=== PATIENT | male | born 1975 | race Caucasian/White ===

== ENCOUNTER 2020-02-09 21:02 | Emergency (ER) | payer BC, SELFPAY ==
--- NOTE | ~2020-02-09 | XR_ITS ---
EXAMINATION: XR abdomen obstructive series DATE: 02/09/2020 21:31 INDICATION: Rectal pain, possible constipation TECHNIQUE: Upright and supine views of the abdomen were obtained. COMPARISON: None. FINDINGS: There are no dilated loops of bowel. No free intraperitoneal gas is identified. The bowel g as pattern is normal. There is a moderate volume of stool in the ascending and proximal transverse co baltazar. Phleboliths are noted in the pelvis. IMPRESSION: 1. Nonobstructive bowel gas pattern. 2. Moderate volume of right-sided colonic stool. Reviewed, dictated and finalized at location A.
[2020-02-09 21:04] VITALS: BP 187/94; PULSE 103; RESP 19; TEMP 36.6; O2SAT 98
--- NOTE | 2020-02-09 21:53 | ED.GENADULT ---
HPI - General Adult General Chief complaint: Unspecified Stated complaint: constipation? Time Seen by Provider: 02/09/20 21:16 Source: patient Mode of arrival: ambulatory Limitations: no limitations History of Present Illness HPI narrative: 44 years old white male presents with anal pain with any bowel movement in the last 24 hours. History of hemorrhoids. Patient denies any fever, chills, nausea, vomiting. Related Data Home Medications Medication Instructions Recorded Confirmed epinephrine 0.3 mg/0.3 mL See Rx Instructions .ROUTE .COMPLEX 06/08/19 injection, auto-injector Allergies Allergy/AdvReac Type Severity Reaction Status Date / Time No Known Allergies Allergy Unknown Unverified 01/24/06 06:10 Review of Systems Review of Systems: Narrative: CONSTITUTIONAL: Denies fever, chills, or sweats. EYES: Denies visual changes, redness, or discharge. ENT: Denies rhinorrhea, congestion, sore throat, or otalgia. CARDIOVASCULAR: Denies chest pain, palpitations, or edema. RESPIRATORY: Denies cough or dyspnea. GASTROINTESTINAL: Denies abdominal pain, nausea, vomiting, or diarrhea. GENITOURINARY: Denies dysuria or hematuria. SKIN: Denies rash or itching. MUSCULOSKELETAL: Denies back pain, joint pain, or myalgia. NEUROLOGIC: Denies headache, numbness, or weakness. PSYCHIATRIC: Denies anxiety or depression. [facility] Social History Social History Smoking status: Heavy tobacco smoker Alcohol intake: current Gender identity (if verbalized by the patient): Male Exam Narrative: Exam Narrative: General appearance: Well-developed, well-nourished Skin: Normal color Head: Normocephalic, nontraumatic Eyes: Clear conjunctiva ENT: Oropharynx normal, ears normal, nose normal Neck: Supple, nontender Chest and respiratory: Airway patent, no respiratory distress, no accessory muscle use Heart: Regular rate/rhythm Abdomen: Soft, nontender, no organomegaly, quiet bowel sounds, annual exam showed large congested hemorrhoids. Severely painful. Nonthrombosed Vascular: Normal peripheral pulses, normal capillary refill. Musculoskeletal: Normal range of motion, nontender back Neurologic: Alert and oriented ?3, [employer] is normal as tested, no gross motor deficit Course Course Emergency Course: Stable Vital Signs Vital signs: Vital Signs Temperature 36.6 C 02/09/20 21:04 Pulse Rate 103 H 02/09/20 21:04 Respiratory Rate 02/09/20 21:04 Blood Pressure 187/94 H 02/09/20 21:04 Pulse Oximetry 98 02/09/20 21:04 Temperature 36.6 C 02/09/20 21:04 Pulse Rate 103 H 02/09/20 21:04 Respiratory Rate 02/09/20 21:04 Blood Pressure 187/94 H 02/09/20 21:04 Pulse Oximetry 98 02/09/20 21:04 Medical Decision Making MDM Narrative Medical decision making narrative: Patient presents with anal pain, physical exam showed congested nonthrombosed hemorrhoids. Patient will be discharged on sitz bath, Colace and Anusol suppository Vital Signs Vital Signs: Vital Signs Temperature 36.6 C 02/09/20 21:04 Pulse Rate 103 H 02/09/20 21:04 Respiratory Rate 02/09/20 21:04 Blood Pressure 187/94 H 02/09/20 21:04 Pulse Oximetry 98 02/09/20 21:04 Temperature 36.6 C 02/09/20 21:04 Pulse Rate 103 H 02/09/20 21:04 Respiratory Rate 02/09/20 21:04 Blood Pressure 187/94 H 02/09/20 21:04 Pulse Oximetry 98 02/09/20 21:04 Critical Care Time Critical Care Time Critical Care Time: No Discharge Plan Discharge Clinical Impression: Hemorrhoids that prolapse with straining and require manual replacement back inside anal canal Patient Disposition: Home, Self
--- NOTE | 2020-02-10 05:17 | PC.NURSE ---
CALLED IN RX TO [facility] IN [place]. FOR COLACE AND ANUSOL-HC. THE PHARMACY THE PATIENT HAD IT CALLED INTO ORIGINALLY IS NOT A 24 HOUR.
== END 2020-02-09 22:42 | disposition home or self-care (01) ==
PROVIDERS: Emergency Provider Emergency Medicine; PCP Emergency Medicine
DX: K64.2 Third degree hemorrhoids (principal); F17.210 Nicotine dependence, cigarettes, uncomplicated
CPT/HCPCS: 74019; 99283